=== PATIENT | female | born 1945 | race Hispanic/Latino ===

== ENCOUNTER 2016-12-09 12:39 | Outpatient (CLI) | payer MEDICARE ==
[2016-12-09 13:21] LABS: Hemoglobin 10.7 gm/dl (10.1-14.3); Mean Corpuscular HGB Conc 32 % (30-34); Mean Corpuscular Hemoglobin 31 pg (28-32); Mean Corpuscular Volume 96 fl (79-97); Platelet Count 196 K/mm3 (140-440); Red Blood Count 3.45 M/mm3 (3.65-5.03)
[2016-12-09 13:43] LABS: Albumin 4.2 g/dL (3.9-5); Albumin/Globulin Ratio 1.2 %; BUN/Creatinine Ratio 2.71; Bilirubin,Total 0.3 mg/dL (0.1-1.2); Calcium 9.8 mg/dL (8.4-10.2); Potassium 5.2 mmol/L (3.6-5.0); Total Protein 7.6 g/dL (6.3-8.2)
--- NOTE | 2016-12-09 14:19 | XRay Report ---
CHEST XRAY, 2 VIEWS: History: Left-sided chest pain. Findings: There is mild diffuse interstitial coarsening. The lungs are otherwise clear but hyperexpanded. The pleural spaces are clear. The cardiac silhouette and pulmonary vasculature are within normal limits for technique. IMPRESSION: Changes consistent with COPD. No evidence for an acute process.
--- NOTE | 2016-12-09 14:21 | XRay Report ---
LEFT RIBS, 3 VIEWS: History: pain. Osteopenia. Subtle, nondisplaced left lateral rib deformities are suspected at levels 5-8. The remaining ribs are grossly intact. No pneumothorax. IMPRESSION: Left 5-8 rib fractures.
== END 2016-12-09 12:40 | disposition home or self-care (01) ==
LOC: XRAY 12:39
PROVIDERS: ATTEND Internal Medicine
DX: J44.9 Chronic obstructive pulmonary disease, unspecified (principal); M85.88 Other specified disorders of bone density and structure, other site; S22.32XA Fracture of one rib, left side, initial encounter for closed fracture; X58.XXXA Exposure to other specified factors, initial encounter; Y93.89 Activity, other specified; Y92.89 Other specified places as the place of occurrence of the external cause; Y99.8 Other external cause status
CPT/HCPCS: 36415; 71020; 80053; 80061; 84439; 84443; 85027

== ENCOUNTER 2022-01-21 12:08 | Outpatient (CLI) | payer MEDICARE ==
[2022-01-21 12:33] LABS: ABG HCO3 27.9 mmol/L (20.0-26.0); ABG Methemoglobin 0.7 % (0.0-1.5); ABG Oxygen Saturation 73.9 % (95.0-99.0); ABG PCO2 39.6 mm Hg; ABG PH 7.466 pH Units (7.350-7.450)
[2022-01-21 12:49] LABS: ABG PO2 30.7 mm Hg (80.0-90.0)
[2022-01-21 13:20] LABS: Chol/HDL Ratio 1.5 %
[2022-01-21 14:09] LABS: C-Reactive Protein 0.5 mg/dL (0.00-1.30)
--- NOTE | 2022-01-21 15:45 | XRay Report ---
CHEST 2 VIEWS INDICATION / CLINICAL INFORMATION: SHORTNESS OF BREATH/CVID PNEUMONIA.. COMPARISON: 12/09/2016 FINDINGS: SUPPORT DEVICES: None. HEART / MEDIASTINUM: No significant abnormality. LUNGS / PLEURA: Chronic bibasilar interstitial airspace disease, similar in appearance to reference e xam from 2017. No definite acute superimposed airspace disease. No significant effusion. No pneumotho rax. ADDITIONAL FINDINGS: Multiple remote appearing posterior right rib fractures. IMPRESSION: Chronic bibasilar airspace disease without new, acute superimposed opacities. Signer Name: Son Faust MD Signed: 01/21/2022 3:40 PM Workstation Name: [id number]
== END 2022-01-21 12:09 | disposition home or self-care (01) ==
LOC: XRAY 12:08
PROVIDERS: ATTEND Internal Medicine
DX: I13.11 Hypertensive heart and chronic kidney disease without heart failure, with stage 5 chronic kidney disease, or end stage renal disease (principal); J44.9 Chronic obstructive pulmonary disease, unspecified; J30.9 Allergic rhinitis, unspecified; I25.10 Atherosclerotic heart disease of native coronary artery without angina pectoris; N18.6 End stage renal disease; E04.1 Nontoxic single thyroid nodule; Z86.16 Personal history of COVID-19; Z79.4 Long term (current) use of insulin
CPT/HCPCS: 36415; 36600; 71046; 80061; 82550; 82728; 82803; 83615; 84484; 85379; 86140